=== PATIENT | female | born 1960 | race Two or more races ===

== ENCOUNTER 2019-08-13 12:08 | Inpatient (IN) | payer OTHER ==
[~2019-08-13] VITALS: Ht 157.5 cm; Wt 54.2 kg
[2019-08-13] MEDS ORDERED: SODIUM CHLORIDE 0.9% 1,000 ML IVB ONE (12:22)
[2019-08-13 16:07] LABS: Basophils # (auto) 0 10 ^3/uL (0-0.2); Basophils % (auto) 0.2 % (0.0-2.0); Eosinophils # (auto) 0 10 ^3/uL (0-0.8); Eosinophils % (auto) 0.1 % (0.0-7.0); Hematocrit 34.3 % (36.0-46.0); Lymphocytes # (auto) 0.5 10 ^3/uL (0.4-5.4); Lymphocytes % (auto) 2.3 % (10.0-50.0); Mean Corpuscular Hemoglobin 30.1 pg (28.0-32.0); Mean Corpuscular Hgb Conc. 35.1 g/dL (32.0-36.0); Mean Corpuscular Volume 85.9 fL (80.0-100.0); Monocytes # (auto) 1.6 10 ^3/uL (0-1.3); Neutrophils # (auto) 20.5 10 ^3/uL (1.6-8.6); Neutrophils % (auto) 90.4 % (37.0-80.0); Nucleated Red Blood Cells % 0.1 %; Platelet Count (auto) 173 10^3/uL (140-450); Red Blood Cells 3.99 10^6/uL (4.0-5.20); Red Cell Distribution Width 15.7 % (11.8-14.3); White Blood Cell 22.7 10^3/uL (4.4-10.8)
[2019-08-13 16:22] LABS: BUN/Creatinine Ratio 13.9; Calcium 8.6 mg/dL (8.5-10.1); Magnesium 1.9 mg/dL (1.6-2.6)
[2019-08-13 16:26] LABS: Total Protein 6.8 g/dL (6.4-8.2)
[2019-08-13 18:13] LABS: Alcohol, Urine < 3.0 mg/dL (0-10); Amphetamine Screen, Urine NEGATIVE (NEGATIVE); Barbiturate Scree,Urine NEGATIVE (NEGATIVE); Benzodiazephine Screen, Urine NEGATIVE (NEGATIVE); Cannabinoid Screen, Urine NEGATIVE (NEGATIVE); Cocaine Screen, Urine NEGATIVE (NEGATIVE); Opiate Scree,Urine NEGATIVE (NEGATIVE); Phencyclidine Screen, Urine NEGATIVE (NEGATIVE)
[2019-08-13] MEDS ORDERED: POTASSIUM CHL 20MEQ/100ML 100 ML IV ONE (19:00)
[2019-08-13] MEDS ORDERED: SODIUM CHL 3% 500 ML IV ONE (19:00)
[2019-08-13] MEDS ORDERED: DEXTROSE (50%) 50ML SYRG IV PRN (20:30)
[2019-08-13] MEDS ORDERED: ONDANSETRON HCL 4 MG/2 ML VIAL IV PRN (20:30)
[2019-08-13] MEDS ORDERED: LORazepam 0.5 MG TAB PO PRN (20:30)
[2019-08-13] MEDS ORDERED: HYDROcodone-ACET 5/325MG TAB PO PRN (20:30)
[2019-08-13 20:53] LABS: Urine Bacteria NONE SEEN /hpf (None Seen); Urine Blood Negative /uL (Negative); Urine Hyaline Cast FEW /lpf (0 - 2); Urine Mucus FEW (None Seen); Urine Specific Gravity 1.008 (1.001-1.035); Urine WBC <1 /hpf (0 - 5)
[2019-08-13] MEDS: SODIUM CHLORIDE 0.9% 1,000 ML IV SCH (20:55)
[2019-08-13] MEDS: cefTRIAXone 1GM/50ML D5W 50 ML IV SCH (22:28)
[2019-08-13] MEDS ORDERED: levETIRAcetam 500 MG/5ML INJ IV ONE (22:41)
[2019-08-14 00:30] VITALS: BP 134/73
[2019-08-14] MEDS: ACCU-CHEK COMFORT CURVE STRIP VI SCH ×5 (00:46→23:52)
[2019-08-14] MEDS: InsuLIN REG 1unit/0.01ml Soln (100units/ml) SC SCH ×5 (00:46→23:57)
[2019-08-14 01:15] LABS: BUN/Creatinine Ratio 9.1; Potassium 3.1 mmol/L (3.5-5.1)
[2019-08-14] MEDS: ACETAMINOPHEN 325 MG TAB PO PRN ×2 (03:24→14:00)
--- NOTE | 2019-08-14 06:00 | NUR ---
Admit to [facility] MELCHOR admitted to [facility] via gurney on equipment monitor phototypesetting. Patient transferred to bed, connected to unit monitoring and oxygen, and weighed by bed scale. Patient oriented to Yamini robins RN, unit, room, bed, and unit policies regarding patient care and visiting hours. All questions and concerns addressed, patient verbalized understanding. NOTE: ALERT AND ORIENTED X2. CONFUSION. ON ROOM AIR. NO SOB, DISTRESS OR PAIN NOTED. SKIN INTACT PICC TO AXEL FROM HOME USED TO CHEMO IVS INFUSING 3% NS AT 30ML/H UNTIL 12PM AND NS AT 60 ML/H.
[2019-08-14 06:31] VITALS: BP 139/79
--- NOTE | 2019-08-14 07:10 | NUR ---
END OF SHIFT REPORT GIVEN AND CARE ENDORSED TO VALDO PERSON.
[2019-08-14 08:00] VITALS: BP 121/65
--- NOTE | 2019-08-14 08:00 | NUR ---
OPENING Report received from Elodia ANTUNEZ RN. Care initiated and initial assessment complete.
--- NOTE | 2019-08-14 10:05 | NUR ---
BEDSIDE Dr. Bob bedside. Patient can go to Tele.
[2019-08-14 11:50] VITALS: BP 141/75
[2019-08-14] MEDS: SODIUM CHLORIDE 0.9% 1,000 ML IV SCH ×2 (13:08→15:38)
[2019-08-14] MEDS: DOCUSATE SOD 100 MG CAP PO PRN (15:47)
[2019-08-14 15:50] VITALS: BP 135/78
--- NOTE | 2019-08-14 16:52 | NUR ---
PHYSICAL THERAPY Patient completing laps with walker around unit.
--- NOTE | 2019-08-14 17:22 | NUR ---
1720 08/14/19 - Contacted [facility] at [phone] requesting authorization for continued inpatient stay. Spoke with strategies analyst Jazlyn who stated there are no beds available in any [facility] facility. Jazlyn provided authorization [id number].
--- NOTE | 2019-08-14 20:00 | NUR ---
SHIFT OPENING NOTE RECEIVED PATIENT AWAKE, ALERT AND ORIENTED X4. LIBYAN SPEAKER. ON ROOM AIR. NO SOB, DISTRESS OR PAIN NOTED. PICC TO RIGHT UPPER ARM FOR OUTPATIENT CHEMOTHERAPY SESSION. LEFT FOREARM INFUSING NS AT 50 ML/H. JETT CATH DRAINING YELLOW URINE TO GRAVITY. PHYSICAL ASSESSMENT COMPLETED, SEE INTERVENTIONS. INSTRUCTED ON POC AND TO CALL FOR ASSIST NEEDED. BED IS IN THE LOWEST POSITION WITH SIDE RAILS UP X2, CALL LIGHT IS WITHIN REACH.
[2019-08-14 20:13] VITALS: BP 150/81
[2019-08-14] MEDS: cefTRIAXone 1GM/50ML D5W 50 ML IV SCH (20:18)
--- NOTE | 2019-08-15 00:10 | NUR ---
REPORT GIVEN TO HANK PERSON IN TELE ALL QUESTIONS ANSWERED
--- NOTE | 2019-08-15 00:24 | NUR ---
PATIENT TRANSFERRED TO TELE ROOM 205 VIA WHEELCHAIR. ALL BELONGINGS TAKEN WITH PATIENT.
--- NOTE | 2019-08-15 00:30 | NUR ---
RECEIVED PATIENT FROM [facility]: Patient resting in bed with breaths even and unlabored. No s/s of distress sob or pain noted. Call light is within reach of the patient.
[2019-08-15] MEDS: ACETAMINOPHEN 325 MG TAB PO PRN (01:26)
[2019-08-15 05:00] VITALS: BP 147/74
[2019-08-15] MEDS: DOCUSATE SOD 100 MG CAP PO PRN (05:39)
[2019-08-15] MEDS: ACCU-CHEK COMFORT CURVE STRIP VI SCH ×4 (05:43→23:44)
[2019-08-15] MEDS: InsuLIN REG 1unit/0.01ml Soln (100units/ml) SC SCH ×4 (05:47→23:48)
[2019-08-15 05:49] LABS: Hematocrit 34.1 % (36.0-46.0); Hemoglobin 11.8 g/dL (12.2-16.2); Mean Corpuscular Hemoglobin 30.4 pg (28.0-32.0); Mean Corpuscular Hgb Conc. 34.5 g/dL (32.0-36.0); Mean Corpuscular Volume 87.9 fL (80.0-100.0); Platelet Count (auto) 147 10^3/uL (140-450); Red Blood Cells 3.88 10^6/uL (4.0-5.20); Red Cell Distribution Width 15.8 % (11.8-14.3); White Blood Cell 9.6 10^3/uL (4.4-10.8)
[2019-08-15 05:50] LABS: Albumin 3.6 g/dL (3.4-5.0); Calcium 8.5 mg/dL (8.5-10.1); Magnesium 1.9 mg/dL (1.6-2.6)
[2019-08-15 05:52] LABS: Potassium 2.7 mmol/L (3.5-5.1)
[2019-08-15 05:55] LABS: BUN/Creatinine Ratio 9.7; Bilirubin, Total 0.6 mg/dL (0.2-1.0); Total Protein 6.3 g/dL (6.4-8.2)
[2019-08-15 05:59] LABS: Basophils % (manual) 0 (0.0-2.0); Eosinophils % (manual) 0 (0-7); Metamyelocytes % 0; Myelocytes % 0; Promyelocytes % 0
[2019-08-15 06:00] LABS: Blast Cells 0
--- NOTE | 2019-08-15 06:03 | NUR ---
CRITICAL LAB, HOSPITALIST PAGED: RECEIVED CRITICAL LAB VALUE OF 2.7 POTASSIUM. PAGED HOSPITALIST AT THIS TIME. WAITING FOR CALL BACK.
[2019-08-15 06:43] LABS: Band Neutrophils % (manual) 12; Monocytes % (manual) 13 (0-12); Reactive Lymphocytes 1
--- NOTE | 2019-08-15 06:43 | NUR ---
REPAGED HOSPITALIST: REPAGED HOSPITALIST TO REPORT CRITICAL LAB. WAITING FOR CALL BACK.
[2019-08-15 06:44] LABS: Lymphocytes % (manual) 19 (10.0-50.0)
--- NOTE | 2019-08-15 06:50 | NUR ---
HOSPITALIST CALLED BACK: Hospitalist Joni called back, updated about patient and notified of critical potassium level. New orders received. To place and carry out orders.
[2019-08-15] MEDS ORDERED: POTASSIUM CHL 20 Meq TABLET PO ONE ×2 (07:00→15:45)
--- NOTE | 2019-08-15 08:00 | NUR ---
RECEIVED PATIENT ALERT AND ORIENTED X4, NOT IN DISTRESS, CLEAR LUNG SOUNDS IN BILATERAL UPPER AND LOWER LUNG LOBES, RR=18, SAT 95%, DEEP BREATHING AND COUGHING ENCOURAGED, DEMONSTRATED AND VERBALIZED WELL, DENIED SOB AND CHEST PAIN AT THIS MOMENT, SR R=84 ON TELE MONITOR, ABDOMEN SOFT WITH ACTIVE BS, C/O CONSTIPATION, LAST BM=08/11/19 REPORTED, JETT CATH IN PLACE AND PATENT, DRAINING CLEAR YELLOW URINE, SKIN INTACT WARM TO TOUCH, RADIAL AND PEDAL PULSES PALPABLE, CAP REFILL <3 SECONDS, RESTING ON BED, DENIED PAIN, HEAD OF BED ELEVATED, BED ON LOW POSITION, RAILS UP X2, CALL LIGHT ON REACH, PENDING NEURO CONSULT AND SS CONSULT, WILL CONTINUE MONITORING.
--- NOTE | 2019-08-15 08:51 | NUR ---
NO HOME MEDICATION LIST AND RECONCILIATION NOTED, DAUGHTER ADITYA WAS CONTACT ON [phone] FOR HOME MEDICATION LIST, WILL BRING HOME MEDICATION TODAY REPORTED BY THE DAUGHTER, WILL CONTINUE MONITORING.
[2019-08-15 09:00] VITALS: BP 137/78
[2019-08-15] MEDS ORDERED: LACTULOSE 20Gm/30ML SOLN PO PRN (10:45)
--- NOTE | 2019-08-15 10:53 | NUR ---
PHARMACY WAS CONTACTED FOR 10:00 AM CAIN JOE MISSING DOSE, MEDICATION WILL BE SENT REPORTED, WAITING TO RECEIVE.
[2019-08-15] MEDS: SODIUM CHLORIDE 0.9% 1,000 ML IV SCH (11:07)
[2019-08-15 13:00] VITALS: BP 148/94
--- NOTE | 2019-08-15 14:04 | NUR ---
Received Keppra iv, verified with pharmacy and administered as ordered.
--- NOTE | 2019-08-15 15:00 | NUR ---
NO BED AVAILABILITY FOR TRANSFERRING PROGRESS TO [facility] REPORTED BY [facility] PERSONAL, UPDATES PROVIDED REQUESTED NOT IN DISTRESS, DENIED PAIN, C/O CONSTIPATION, DR. ZARCO NOTIFIED, LACTULOSE PO WAS GIVEN ORDERED, WILL CONTINUE MONITORING.
[2019-08-15] MEDS ORDERED: DICY10CA12 PO (15:06)
[2019-08-15] MEDS ORDERED: POSA100T PO (15:06)
[2019-08-15] MEDS ORDERED: DOCU-80 PO (15:06)
[2019-08-15] MEDS ORDERED: ACYC1CAP23 PO (15:06)
[2019-08-15] MEDS ORDERED: SULF400I3 PO (15:06)
[2019-08-15] MEDS ORDERED: MAGNESIUM SULFATE 1GM/100ML 100 ML IV ONE (15:45)
[2019-08-15] MEDS ORDERED: BISACODYL 10 MG RECT SUPP PR ONE (15:45)
--- NOTE | 2019-08-15 16:51 | NUR ---
DAUGHTER PROVIDE HOME MEDICATION, MEDICATION RECONCILIATION COMPLETED, MEDICATION SENT TO THE PHARMACY, POTASSIUM L=3.0 DR. ZARCO WAS NOTIFIED, NOT IN DISTRESS, RESTING ON BED, WILL CONTINUE MONITORING.
[2019-08-15 17:00] VITALS: BP 139/91
--- NOTE | 2019-08-15 18:30 | NUR ---
1815 08/15/2019 - Contacted [facility] [phone] requesting authorization for continued inpatient stay. Spoke with it support analyst Christal, who stated authorization was approved for [facility]. Hard copy will be faxed.
--- NOTE | 2019-08-15 19:20 | NUR ---
opening note pt resting in semi fowlers with HOB at 30 degrees. respirations even and nonlabored on room air. pt is A&Ox4. bed in low locked position, call light within reach.
--- NOTE | 2019-08-15 19:25 | NUR ---
RESTING ON BED, NOT IN DISTRESS, REPORT WAS GIVEN TO THE EXTENSION SPECIALIST RN.
[2019-08-15 22:00] VITALS: BP 161/88
[2019-08-15] MEDS ORDERED: LORazepam 2MG/ML-1ML VIAL IV PRN (22:00)
[2019-08-16 05:00] VITALS: BP 142/86
[2019-08-16] MEDS: ACCU-CHEK COMFORT CURVE STRIP VI SCH ×3 (05:23→17:54)
[2019-08-16] MEDS: InsuLIN REG 1unit/0.01ml Soln (100units/ml) SC SCH ×3 (05:28→18:29)
[2019-08-16 05:40] LABS: Hematocrit 36.7 % (36.0-46.0); Hemoglobin 12.6 g/dL (12.2-16.2); Mean Corpuscular Hemoglobin 30.5 pg (28.0-32.0); Mean Corpuscular Hgb Conc. 34.4 g/dL (32.0-36.0); Mean Corpuscular Volume 88.4 fL (80.0-100.0); Platelet Count (auto) 160 10^3/uL (140-450); Red Blood Cells 4.15 10^6/uL (4.0-5.20); Red Cell Distribution Width 15.6 % (11.8-14.3)
[2019-08-16 05:42] LABS: Calcium 8.9 mg/dL (8.5-10.1); Potassium 3.1 mmol/L (3.5-5.1)
[2019-08-16 05:47] LABS: Albumin 3.7 g/dL (3.4-5.0); BUN/Creatinine Ratio 11.8; Bilirubin, Total 0.8 mg/dL (0.2-1.0); Magnesium 2.4 mg/dL (1.6-2.6); Total Protein 6.7 g/dL (6.4-8.2)
[2019-08-16 06:05] LABS: Basophils % (manual) 0 (0.0-2.0); Blast Cells 0; Eosinophils % (manual) 0 (0-7); Metamyelocytes % 0; Myelocytes % 0; Promyelocytes % 0; Reactive Lymphocytes 0
[2019-08-16 06:52] LABS: Band Neutrophils % (manual) 9; Lymphocytes % (manual) 19 (10.0-50.0); Monocytes % (manual) 12 (0-12)
--- NOTE | 2019-08-16 07:04 | NUR ---
closing note pt is resting in left lateral position with eyes closed. no s/s of pain or distress at this time. bed in low locked position, call light within reach.
--- NOTE | 2019-08-16 08:00 | NUR ---
Morning note patient resting in bed with even and unlabored respirations, no distress noted. Instructed patient through translation on POC, fall precautions and to call for assistance as needed. Patient verbalized understanding. Fall precautions in place with call light within reach. BSC at bedside.
[2019-08-16 09:00] VITALS: BP 137/89
--- NOTE | 2019-08-16 09:24 | NUR ---
Updated [facility] on patient's status. No [facility] bed available today.
--- NOTE | 2019-08-16 09:24 | NUR ---
RE: Neurology/discharge Patient is okay for discharge after MRI and EEG have been completed per Dr. Dumas.
[2019-08-16] MEDS: SODIUM CHLORIDE 0.9% 1,000 ML IV SCH (12:53)
[2019-08-16 13:00] VITALS: BP 140/90
[2019-08-16] MEDS ORDERED: LORazepam 2MG/ML-1ML VIAL IV ONE (14:15)
--- NOTE | 2019-08-16 14:25 | NUR ---
ELECTROENCEPHALOGRAM UNABLE TO COMPLETE EEG. PTS HAIR MATTED. UNABLE TO SETUP LEADS. DR. DE AND PRIMARY RN NIDA MCHUGH.
--- NOTE | 2019-08-16 16:10 | NUR ---
assessment Patient has no post discharge needs identified. Addendum: 08/16/19 at 1610 by Ida SNOW Amended: Links added.
[2019-08-16 17:00] VITALS: BP 147/97
[2019-08-16] MEDS ORDERED: POTASSIUM CHL 20 Meq TABLET PO ONE (17:00)
--- NOTE | 2019-08-16 17:05 | NUR ---
was at bedside - Dr. Bob
--- NOTE | 2019-08-16 17:13 | NUR ---
RE: discharge Dr. Dumas to see patient at bedside prior to discharge per Dr. Bob.
--- NOTE | 2019-08-16 18:31 | NUR ---
Patient resting in bed with even and unlabored respirations no distress noted. Fall precautions in place with call light within reach.
--- NOTE | 2019-08-16 18:48 | NUR ---
Closing note Patient resting in bed with even and unlabored respirations, no distress noted. Call light within reach.
--- NOTE | 2019-08-16 18:56 | NUR ---
Rain catheter discontinued Catheter discontinued with aseptic technique after catheter balloon deflated. Catheter intact. 600ml of light cherie drained from catheter. Patient tolerated well.
--- NOTE | 2019-08-16 19:10 | NUR ---
opening note pt A&Ox4. pt denies pain or discomfort at this time. POC discussed. bed in low locked position, call light within reach.
--- NOTE | 2019-08-16 19:18 | NUR ---
Care endorsed to NAYA Hsu.
--- NOTE | 2019-08-16 20:30 | NUR ---
Dr. Dumas at bedside dr Dumas has cleared patient for discharge.
--- NOTE | 2019-08-16 21:40 | NUR ---
discharge pt escorted via wheel chair by Nurse Aid to ER entrance for hot die picker. family to hot die picker patient.
== END 2019-08-16 21:40 | disposition home or self-care (01) | DRG 101 ==
LOC: ER 12:08 → EDBD 12:08 → TELE 12:09 → DOU IN ICU 08-14 04:00 → TELE-CENTR 08-15 00:30
PROVIDERS: ADMIT Hospitalist; ATTEND Internal Medicine
DX: G40.89 Other seizures (principal); E87.1 Hypo-osmolality and hyponatremia; C95.90 Leukemia, unspecified not having achieved remission; R65.10 Systemic inflammatory response syndrome (SIRS) of non-infectious origin without acute organ dysfunction; R73.9 Hyperglycemia, unspecified; D64.9 Anemia, unspecified; E87.6 Hypokalemia; F17.200 Nicotine dependence, unspecified, uncomplicated; K59.00 Constipation, unspecified; K74.60 Unspecified cirrhosis of liver; R32 Unspecified urinary incontinence; Z20.828 Contact with and (suspected) exposure to other viral communicable diseases
CPT/HCPCS: 36415; 70450; 70551; 71045; 80048; 80053; 80061; 80307; 81001; 82140; 82962; 83036; 83735; 84132; 85007; 85025; 85027; 93005; G0378; J0696; J1815; J2405; J3480; J7060